=== PATIENT | female | born 1980 | race Caucasian/White ===

== ENCOUNTER → 2017-06-24 | Outpatient (CLI) | payer BC, OTHER ==
[~2017-06-24] MED LIST: CALC-921 PO; DCS100C PO; FAMO1TAB21 PO; HYDR-3720 PO; IBP800T PO; OXYC-202 PO; PREN1TAB39 PO
--- NOTE | 2017-06-24 16:09 | Diagnostic Imaging Report ---
EXAMINATION: Digital mammogram Bilateral screening. INDICATION: Screening. This is the patient's baseline study. At this time, there are no current complaints. The current study was also evaluated with a Computer Aided Detection (CAD) system. FINDINGS: The fibroglandular tissue in both breasts is heterogeneously dense. This does limit the sensitivity of this exam. There is no primary or secondary sign of malignancy noted. The tomographic views were also unremarkable for malignancy. IMPRESSION: 1. There is no evidence for malignancy. 2. The patient should have her annual bilateral screening mammogram on schedule in June of 2018. ACR BI-RADS Category 1: Negative. Result letter will be mailed to the patient. Note: At least 10% of breast cancer is not imaged by mammography. Dictated by: Dictated on workstation # [id number]
== END ==
LOC: RAD 09:43
PROVIDERS: ATTEND Obstetrics & Gynecology
DX: Z12.31 Encounter for screening mammogram for malignant neoplasm of breast (principal)
CPT/HCPCS: 77067

== ENCOUNTER 2018-07-29 14:36 | Outpatient (CLI) | payer BC ==
[~2018-07-29] VITALS: Ht 170.2 cm; Wt 68.0 kg
== END 2018-07-29 14:50 | disposition home or self-care (01) ==
LOC: PREOP 14:36
PROVIDERS: ATTEND Surgery
DX: Z01.818 Encounter for other preprocedural examination (principal)

== ENCOUNTER 2018-08-01 10:33 | Day surgery (SDC) | payer BC ==
[~2018-08-01] VITALS: Ht 170.2 cm; Wt 68.0 kg
[~2018-08-01 10:33] MED LIST changes: +MULT-141 PO; -OXYC-202 PO; +OXYC1TAB12 PO; +PHEN30CA2 PO
[2018-08-01] MEDS ORDERED: NS IV 500 ML 500 ML ONE (10:36)
[2018-08-01] MEDS ORDERED: NS IV 500 ML 500 ML IV PRN (10:44)
[2018-08-01] MEDS ORDERED: LIDOCAINE JELLY 2% 6 ML SYRINGE MM PRN (10:45)
[2018-08-01] MEDS ORDERED: fentaNYL INJECTION 100 MCG/2 ML AMP IVP ONE (10:45)
[2018-08-01] MEDS ORDERED: MIDAZOLAM 2 MG/2 ML (VERSED) VIAL IVP ONE (10:45)
[2018-08-01] MEDS ORDERED: LIDOCAINE JELLY 2% 6 ML SYRINGE ONE (10:53)
[2018-08-01 10:55] VITALS: BP 116/74
[2018-08-01] MEDS ORDERED: PROPOFOL INJECTION 50 ML IV ONE ×2 (11:02→12:06)
[2018-08-01] MEDS ORDERED: MIDAZOLAM 5 MG/5 ML (VERSED) VIAL ONE (11:02)
--- NOTE | 2018-08-01 11:28 | Progress Note-Pre Operative ---
Pre-Operative Progress Note H&P Reviewed The H&P was reviewed, patient examined and no changes noted. Date Seen by Provider: Aug 01, 2018 Time Seen by Provider: 11:20 Date H&P Reviewed: Aug 01, 2018 Time H&P Reviewed: 11:20 Pre-Operative Diagnosis: rectal bleed VINCENZO SHEPARD MD Aug 01, 2018 11:28
[2018-08-01] MEDS ORDERED: ACETAMINOPHEN 325 MG TABLET PO PRN (11:30)
[2018-08-01] MEDS ORDERED: ONDANSETRON 4 MG/2 ML (SDV) Z0FRAN IV PRN (11:30)
[2018-08-01] MEDS ORDERED: HYDROcodone/APAP 5 MG/325 MG (LORTAB) TAB PO PRN (11:30)
[2018-08-01] MEDS ORDERED: morphine INJ 10 MG/ML 1ML (SYR OR VIAL) IV PRN (11:30)
--- NOTE | 2018-08-01 11:30 | Discharge Inst-Surgical ---
D/C Lap Instructions-DEVYN Follow Up PRN Activity as tolerated No driving for 24 hours No driving while on pain medications Incentive Spirometry use every 2 hours while awake High Fiber Diet 25g or more per day Avoid Alcohol, Caffeine, Spicy Grainola and Acid foods. Drink 64 fluid oz or more of fluids per day. Symptoms to Report: Fever over 101 degree F, Nausea/Vomiting If any problems/questions: Contact your physician or go to Emergency Room VINCENZO SHEPARD MD Aug 01, 2018 11:30
[2018-08-01 12:40] VITALS: BP 130/90
[2018-08-01 13:15] VITALS: BP 108/66
--- NOTE | 2018-08-01 15:18 | Anesthesia-General Post-Op ---
MAC Patient Condition Mental Status/LOC: Same as Preop Cardiovascular: Satisfactory Nausea/Vomiting: Absent Respiratory: Satisfactory Pain: Controlled Complications: Absent Post Op Complications Complications None Follow Up Care/Instructions Patient Instructions None needed. Anesthesiology Discharge Order Discharge Order Patient is doing well, no complaints, stable vital signs, no apparent adverse anesthesia problems. No complications reported per nursing. LINDSAY HERNANDEZ CRNA Aug 01, 2018 15:18
[2018-08-01 16:03] VITALS: BP 108/66
--- NOTE | 2018-08-01 20:23 | OPERATIVE REPORT ---
DATE OF SERVICE: 08/01/2018 ATTENDING PRIMARY CARE PHYSICIAN: Selene Hidalgo DO. PREOPERATIVE DIAGNOSIS: Rectal bleeding. POSTOPERATIVE DIAGNOSIS: Mild chronic stage II external and internal hemorrhoids. Remainder of the rectum and colon were normal. PROCEDURE PERFORMED: Colonoscopy. SURGEON: Vincenzo Shepard MD. ANESTHESIA: Monitored anesthesia care. ESTIMATED BLOOD LOSS: Minimal. FINDINGS: Chronic stage II external and internal hemorrhoids. The remainder of the rectum and colon were normal. There were no polyps or any neoplasms identified. DISPOSITION: The patient tolerated the procedure well. INDICATIONS: The patient is a 38-year-old female who has had intermittent episodes of blood per rectum. She reports that she has had this in the past years; however, the past several months, this has become much more frequent. She was also seen by her primary care physician where lab work was done and she was found to be slightly anemic. She does report that she does have issues with constipation and will then take laxatives which will then allow her to have a bowel movement. She does not report any family history of colon cancer. DESCRIPTION OF PROCEDURE: The patient was brought to the endoscopy suite, laid in left lateral decubitus position. After adequate IV pain and sedative medications and monitored anesthesia care, a digital rectal examination was performed. Chronic stage II external and internal hemorrhoids were identified, which were not actively edematous nor inflamed and no bleeding. Normal sphincter tone was felt and there were no palpable masses. The endoscope was then intubated to the anus and the rectum was gently insufflated. The endoscope was then advanced to the valves of Gardner of the rectum with no polyps or any neoplasms identified. We then proceeded through the sigmoid colon where no diverticulosis identified. The endoscope was then advanced to the remainder of the descending, transverse and ascending colon to the cecum. These segments were normal. There were no polyps or any neoplasms identified as well as no mucosal inflammatory changes. The endoscope was then slowly withdrawn while taking a second look and suctioning of residual air with no additional findings. The patient tolerated the procedure well. We feel that the most likely etiology of her intermittent rectal bleeding is due to internal hemorrhoidal flareups which are only stage II at this time. We will recommend conservative medical management with a high fiber diet with at least 30 grams of fiber per day as well as copious amounts of water on a daily basis to promote soft stools on a daily basis in the prevention of constipation and having to use laxatives on an intermittent basis. She does not have any family history of colon cancer and she does not need another colonoscopy until she is age 50; however, sooner if she becomes symptomatic. Job ID: [id number] DocumentID: [id number] Dictated Date: 08/01/2018 12:29:00 Export Agent Date: 08/01/2018 20:23:36 Dictated By: VINCENZO SHEPARD MD
== END 2018-08-01 13:25 | disposition home or self-care (01) ==
LOC: ENDO 10:33
PROVIDERS: ATTEND Surgery
DX: K64.1 Second degree hemorrhoids (principal); K59.00 Constipation, unspecified; Z87.891 Personal history of nicotine dependence
CPT/HCPCS: 84703

== ENCOUNTER → 2018-10-13 | Outpatient (CLI) | payer BC ==
--- NOTE | 2018-10-13 17:02 | Diagnostic Imaging Report ---
PROCEDURE: US Thyroid. TECHNIQUE: Multiple real-time grayscale images were obtained of the thyroid in various projections. INDICATION: Thyromegaly. COMPARISON: 04/04/2015. FINDINGS: The left lobe measures 5.3 x 1.8 x 1.5 cm and the right measures 4.4 x 1.4 x 1.5 cm. There is single dominant nodule involving the inferior margins of the left thyroid lobe. It is minimally heterogeneous and nearly isoechoic to the background thyroid parenchyma and measures 1.2 x 1 x 1 cm. This is stable compared to 1 x 1.2 x 1 cm previously. Color flow images show presence of internal vascularity. On the right, there are two subcentimeter cystic-appearing mostly anechoic foci. Bulky calcifications are noted within these small lesions. The larger measures 1 x 0.4 x 0.7 cm and the smaller measures 0.6 x 0.4 x 0.3 cm. IMPRESSION: 1. Stable dominant nodule involving the left thyroid lobe. Given its size and stability, percutaneous tissue sampling is not advised at this time. 2. Smaller mostly cystic-appearing foci on the right as well. Dictated by: Dictated on workstation # [id number]
== END ==
LOC: RAD 14:44
PROVIDERS: ATTEND Family Medicine
DX: E04.2 Nontoxic multinodular goiter (principal)
CPT/HCPCS: 76536

== ENCOUNTER 2019-11-09 09:30 | Outpatient (RCR) | payer BC ==
[~2019-11-09] VITALS: Ht 172.7 cm; Wt 75.9 kg
[2019-11-09] MEDS ORDERED: TURM538C PO (09:56)
[2019-11-09] MEDS ORDERED: FERR325T18 PO (09:56)
[2019-11-09] MEDS ORDERED: GLUC100016 PO (09:56)
[2019-11-11] MEDS ORDERED: OXYC1TAB87 PO (12:56)
[2019-11-11] MEDS ORDERED: IBUP-1780 PO (12:56)
[2019-11-11] MEDS ORDERED: DCS100C PO (12:56)
== END 2019-11-09 10:09 | disposition home or self-care (01) ==
LOC: PREOP 09:30
PROVIDERS: ATTEND Obstetrics & Gynecology
DX: Z01.818 Encounter for other preprocedural examination (principal); Z11.59 Encounter for screening for other viral diseases; N93.8 Other specified abnormal uterine and vaginal bleeding
CPT/HCPCS: 87635

== ENCOUNTER → 2021-03-14 | Outpatient (CLI) | payer BC ==
[~2021-03-14] MED LIST changes: +DOCU-239 PO; +FERR325T18 PO; +GLUC100016 PO; +IBUP-1780 PO; +OXYC1TAB87 PO; +TURM538C PO
--- NOTE | 2021-03-14 18:33 | Diagnostic Imaging Report ---
INDICATION: Routine screening. COMPARISON is made with prior mammogram from 06/24/2017. 2-D and 3-D bilateral screening mammography was performed with CAD. Both breasts are heterogeneously dense, limiting the sensitivity of mammography. The parenchymal pattern is stable. No dominant mass or malignant-appearing microcalcifications are seen. Axillae are unremarkable. IMPRESSION: BI-RADS Category 1 No mammographic features suspicious for malignancy are identified. ACR BI-RADS Category 1: Negative. Result letter will be mailed to the patient. Note: At least 10% of breast cancer is not imaged by mammography. Dictated by: Dictated on workstation # [id number]
== END ==
LOC: RAD 15:25
PROVIDERS: ATTEND Obstetrics & Gynecology
DX: Z12.31 Encounter for screening mammogram for malignant neoplasm of breast (principal)
CPT/HCPCS: 77063; 77067

== ENCOUNTER → 2022-04-13 | Outpatient (CLI) | payer BC ==
[~2022-04-13] MED LIST changes: -PHEN30CA2 PO; +PHEN30CA21 PO
--- NOTE | 2022-04-13 09:09 | Diagnostic Imaging Report ---
Indication: Routine screening. Comparison is made with prior mammograms 03/14/2021 and 06/24/2017. 2-D and 3-D bilateral screening mammography was performed with CAD. Both breasts are heterogeneously dense, limiting the sensitivity of mammography. No mass or malignant appearing microcalcifications are seen. Axillae are unremarkable. IMPRESSION: BI-RADS Category 1 No mammographic features suspicious for malignancy are identified. ACR BI-RADS Category 1: Negative. Result letter will be mailed to the patient. Note: At least 10% of breast cancer is not imaged by mammography. Dictated by: Dictated on workstation # [id number]
--- NOTE | 2022-04-13 10:23 | Diagnostic Imaging Report ---
PROCEDURE: US Thyroid. TECHNIQUE: Multiple real-time grayscale images were obtained of the thyroid in various projections. INDICATION: Thyroid nodules COMPARISON: 10/13/2018 and 04/04/2015 FINDINGS: The right lobe of the thyroid gland measures 5.0 x 1.4 x 1.6 cm. A 0.7 cm colloid cyst is identified within the mid right thyroid lobe, decreased in size since the prior examination. This is benign. No new right thyroid nodules. The left lobe of the thyroid gland measures 5.5 x 1.2 x 1.7 cm. Round circumscribed isoechoic solid nodule is present within the inferior pole of the left thyroid lobe measuring 1.3 x 1.1 x 1.1 cm. This has not significantly changed since 2014. No new left thyroid nodules. The isthmus is unremarkable. IMPRESSION: Stable 1.3 cm nodule within the inferior pole of the left thyroid lobe. Given this is not significantly changed since 2014, this suggests a benign etiology. Benign colloid cyst in the right thyroid lobe. No new thyroid nodules. Dictated by: Dictated on workstation # [id number]
== END ==
LOC: RAD 07:45
PROVIDERS: ATTEND Family Medicine
DX: Z12.31 Encounter for screening mammogram for malignant neoplasm of breast (principal); E04.2 Nontoxic multinodular goiter
CPT/HCPCS: 76536; 77063; 77067